=== PATIENT | female | born 1940 | race Caucasian/White ===

== ENCOUNTER → 2017-12-02 | Day surgery (SDC) | payer MEDICARE ==
[2017-12-01 15:22] LABS: BASOPHILS # (AUTO) 0.1 (0.0-0.1); BASOPHILS % 0.7 % (0.0-1.0); EOSINOPHILS # (AUTO) 0.2 (0.0-0.4); EOSINOPHILS % 2.6 % (0.0-6.0); HEMATOCRIT 38.8 % (34.2-44.1); HEMOGLOBIN 12.5 g/dL (12.0-16.0); LYMPHOCYTES # (AUTO) 1.6 (1.0-3.2); LYMPHOCYTES % 20.2 % (18.0-39.1); MEAN CORPUSCULAR HEMOGLOBIN 29.6 pg (28-32); MEAN CORPUSCULAR HGB CONC 32.2 g/dL (31-35); MEAN CORPUSCULAR VOLUME 91.7 fL (81-99); MONOCYTES # (AUTO) 0.6 (0.2-0.8); MONOCYTES % 8.1 % (4.4-11.3); NEUTROPHILS # (AUTO) 5.2 (2.1-6.9); NEUTROPHILS % 68.1 % (38.7-80.0); PLATELET COUNT 170 x10e3/uL (140-360); RED BLOOD COUNT 4.23 x10e6/uL (3.6-5.1); RED CELL DISTRIBUTION WIDTH 13.9 % (11.7-14.4)
--- NOTE | 2017-12-01 15:33 | Diagnostic Imaging Report ---
PROCEDURE: X-RAY CHEST, TWO VIEWS COMPARISON: None. INDICATIONS: PREOP LEFT BUNION SX TOMORROW IN THE AM FINDINGS: LUNGS: No consolidations or edema. Pulmonary vasculature is normal. PLEURA: No effusions or pneumothorax. HEART \T\ MEDIASTINUM: The heart is within normal size-limits. Mild ectasia of the aorta. No hilar lymphadenopathy. BONES \T\ SOFT TISSUES: No acute findings. CONCLUSION: No acute thoracic abnormality. Dictated by: Grzegorz Mortensen M.D. on 12/01/2017 at 15:36 Electronically approved by: Grzegorz Mortensen M.D. on 12/01/2017 at 15:36
[~2017-12-02] MED LIST: ASPIRIN81 MG; BUPIVACAINE HCL 0.5% INJ 30 ML VIAL INJ ONE; CALCIUM PLUS; CEFAZOLIN SOD 1 GM VIAL ONE; CRESTOR10 MG; D3; DEXAMETHASONE SOD PHOS INJ 4 MG/ML VIAL ONE; FENTANYL CITRATE/PF 100MCG/2 ML INJ ONE; KETOROLAC TROMETHAMINE 30 MG/ML VIAL ONE; LIDOCAINE HCL 2% LOCAL INJ 5 ML SDV VIAL INJ ONE; MAGNESIUM; MIDAZOLAM HCL 2 MG/2 ML VIAL ONE; OMEGA-31000 MG; ONDANSETRON HCL INJ 2 MG/ML VIAL ONE; PROPOFOL IV EMULSION 10 MG/ML 20 ML VIAL ONE; SEVOFLURANE INHAL SOLN 250 ML PEN BTL ONE
--- NOTE | 2017-12-02 07:44 | Operative Report ---
DATE OF PROCEDURE: December 02, 2017 PREOPERATIVE DIAGNOSIS: Left hallux valgus. POSTOPERATIVE DIAGNOSIS: Left hallux valgus. PLANNED PROCEDURE: Left crossover bunionectomy. SURGEON: Kady Green DPM DIP GUIDER STOVES: Celina Hunter DPM ANESTHESIA: General with a postoperative block consisting of 10 mL of 0.5% Marcaine plain mixed with 1 mL of dexamethasone phosphate. HEMOSTASIS: Pneumatic ankle tourniquet set at 250 mmHg for a total time of approximately 20 minutes. MATERIALS: 3-0 Vicryl and 4-0 nylon. ESTIMATED BLOOD LOSS: Less than 10 mL. DETAILS OF PROCEDURE: Patient was seen in the preoperative waiting where the correct procedure and site was identified. The patient was brought into the operating room and placed on the operating table in the supine position. General anesthesia was initiated at this time. A well-padded pneumatic tourniquet was placed about the patient's left ankle. The left foot, ankle and leg was then scrubbed, prepped and draped in the usual aseptic manner. The left foot and ankle was exsanguinated with an Esmarch bandage, and the pneumatic ankle tourniquet was inflated to 250 mmHg for a total time approximately 20 minutes. Attention was directed to the dorsomedial aspect of the patient's left foot where a large bony prominence was noted to the 1st metatarsophalangeal joint with the hallux deviated laterally. Utilizing a 5-cm incision, the case was started over the 1st metatarsophalangeal joint medial to the extensor hallucis longus tendon. The incision was carried through the subcutaneous tissues them from deeper underlying structures. All vital neurovascular structures were identified and retracted medial and laterally, and all bleeders were cauterized or ligated as deemed necessary. At this time, through the same incision a full lateral release was performed consisting of the deep transverse metatarsal ligament, lateral collateral ligament, as well as the fibular sesamoid ligament. The hallux was then put through a range of motion and found to be functioning in a more proper anatomic alignment. Next, attention was directed to the medial aspect of the 1st metatarsal head where an inverted-L capsulotomy was performed. The capsule was reflected to allow for good visualization of the 1st metatarsal head. Next, utilizing a sagittal saw the medial eminence and dorsal eminence were resected and passed off to the back table. The bony prominence was then smoothed utilizing a rotary bur. The wound was then flushed with copious amounts of sterile saline. Capsule and deep tissue were reapproximated with 3-0 Vicryl, subcutaneous tissue with 3-0 Vicryl and the skin was closed using a running interlocking stitch with 4-0 nylon. The incision site was then dressed with Adaptic, 4 x 4s, Kerlix, and an Fidel wrap followed by a postop shoe. The patient tolerated the procedure and anesthesia well. The patient was transferred to postoperative recovery with vital signs stable and vascular status intact. Patient was monitored there for a short period of time before being sent home with follow written and oral instructions: 1. Keep the dressing clean, dry and intact. 2. The patient is to remain partial weightbearing in a postop shoe and to avoid excessive ambulation until being seen in the office. 3. Patient was given the office number and instructed to contact us if any problems should arise. DICTATED BY CELINA HUNTER DPM Job#: [id number] [facility]ATHIE
== END | disposition home or self-care (01) ==
LOC: OR 05:14
PROVIDERS: ATTEND Podiatrist Foot & Ankle Surgery
DX: M20.12 Hallux valgus (acquired), left foot (principal); R01.1 Cardiac murmur, unspecified; E78.5 Hyperlipidemia, unspecified; Z01.810 Encounter for preprocedural cardiovascular examination; Z01.812 Encounter for preprocedural laboratory examination; Z01.818 Encounter for other preprocedural examination; Z79.82 Long term (current) use of aspirin
CPT/HCPCS: 28292; 36415; 71046; 85025; 93005; J0690; J1100; J1885; J2001; J2250; J2405